=== PATIENT | male | born 1955 | race Caucasian/White ===

== ENCOUNTER → 2020-03-26 | Outpatient (CLI) | payer MEDICARE ==
--- NOTE | 2020-03-27 09:17 | RAD ---
EXAM DESCRIPTION: Knee,Right Complete: CR/DR/XR. CLINICAL HISTORY: 64 years MalePAIN. Right knee. COMPARISON: Single view AP pelvis on the same visit. TECHNIQUE: 4 views AP standing, lateral standing, 45 degree AP flexion standing, and patellar sunrise right knee. FINDINGS: Heterogeneous bone density. Small tibial spine spurs. Narrowing of the medial compartment. Spurs on the superior and inferior patellar articular margins. Narrowing of the medial patellofemoral joint space. No suprapatellar effusion. No fracture. No radiodensities bodies in the joint spaces and soft tissues. IMPRESSION: Heterogeneous bone density. Narrowing of the medial compartment in the medial joint space of the patellofemoral compartment. No acute bony or joint margin abnormalities. No significant effusion. Electronically signed by: Darius Jha MD 03/27/2020 9:15 AM [facility]
--- NOTE | 2020-03-27 09:28 | RAD ---
EXAM DESCRIPTION: Pelvis: CR/DR/XR CLINICAL HISTORY: PAIN COMPARISON: Radiographs of the right knee on the same visit. TECHNIQUE: One view AP Pelvis FINDINGS: No fracture dislocation. Heterogeneous bone density. Bilateral superior lateral acetabulum with spurs and narrowing of the underlying joint space. Minimal lateral flattening of the base of the bilateral femoral heads. No abnormal radiodense objects in the soft tissues or joint spaces. Vascular calcifications in the pelvis and scrotum. Minimal arthrosis bilateral inferior SI joints. Spondylosis lower lumbar spine disc spaces. IMPRESSION: Bilateral superior lateral acetabular hypertrophy with narrowing of the Hip joints. Minimal flattening of the bilateral lateral femoral heads. This can be associated with femoral acetabular impingement. Heterogeneous bone density. No acute fracture. Electronically signed by: Darius Jha MD 03/27/2020 9:26 AM [facility]
== END ==
LOC: RAD 07:55
PROVIDERS: ATTEND Orthopaedic Surgery
DX: M25.861 Other specified joint disorders, right knee (principal); M25.851 Other specified joint disorders, right hip; M25.852 Other specified joint disorders, left hip